=== PATIENT | male | born 1945 | race Caucasian/White ===

== ENCOUNTER 2021-03-28 21:57 | Inpatient (IN) | payer OTHER ==
[~2021-03-28] VITALS: Ht 165.1 cm; Wt 77.1 kg
[2021-03-28] MEDS ORDERED: IV NORMAL SALINE 500 ML BAG IV ONE (22:30)
[2021-03-28 23:16] LABS: MEAN CORPUSCULAR HEMOGLOBIN 29.9 uug (23.8-33.4); MEAN CORPUSCULAR VOLUME 88.7 fL (73.0-96.2); PLATELET COUNT (AUTO) 172 K/uL (152-348)
[2021-03-28 23:26] LABS: ALANINE AMINOTRANSFERASE 28 U/L (16-63); ALKALINE PHOSPHATASE 56 U/L (50-136); ASPARTATE AMINOTRANSFERASE 26 U/L (15-37); BILIRUBIN,TOTAL 0.2 mg/dL (0.2-1.0); CARBON DIOXIDE 24 mmol/L (21-32); CHLORIDE 106 mmol/L (98-107); CREATINE KINASE, TOTAL 42 U/L (39-308); GLUCOSE 110 mg/dL (74-106); LIPASE 224 U/L (73-393); POTASSIUM 3.7 mmol/L (3.5-5.1); TOTAL PROTEIN, SERUM 4.2 g/dL (6.4-8.2); UREA NITROGEN, BLOOD 59 mg/dL (7-18)
[2021-03-29] MEDS ORDERED: IV NORMAL SALINE 250 ML IV ONE (00:10)
[2021-03-29] MEDS ORDERED: IOHEXOL 300MG/ML 100 ML INFUS..BTL ONE (00:10)
[2021-03-29] MEDS ORDERED: SWABABLE VALVE TRANSFER SET EA MC ONE (00:10)
[2021-03-29 00:24] LABS: HEMATOCRIT 10.5 % (36.7-47.1)
[2021-03-29] MEDS ORDERED: OCTREOTIDE ACETATE 100 MCG/1 MLVIAL IJ ONE (01:45)
[2021-03-29] MEDS ORDERED: PANTOPRAZOLE SODIUM IV 80 MG in IV DEXTROSE 5% 100 ML IV ONE (01:45)
[2021-03-29] MEDS ORDERED: PANTOPRAZOLE SODIUM 40 MG VIAL ONE ×2 (02:11→04:54)
[2021-03-29] MEDS ORDERED: OCTREOTIDE ACETATE 100 MCG/1 MLVIAL ONE (02:12)
[2021-03-29] MEDS ORDERED: ONDANSETRON 4 MG/2 ML VIAL IV ONE (02:30)
[2021-03-29] MEDS ORDERED: ONDANSETRON 4 MG/2 ML VIAL ONE (02:30)
[2021-03-29] MEDS ORDERED: MAGNESIUM HYDROXIDE 30 ML LIQUID UDC PO PRN (02:45)
[2021-03-29] MEDS ORDERED: ACETAMINOPHEN 325 MG TABLET PO PRN (02:45)
[2021-03-29] MEDS ORDERED: REMEDY ESSENTIAL ZINC PASTE 113 GM TP PRN (02:45)
[2021-03-29] MEDS ORDERED: IV NS 1000 ML 1,000 ML IV PRN ×2 (02:45→03:49)
[2021-03-29] MEDS ORDERED: CEFTRIAXONE 1 G in IV DEXTROSE 5% 50 ML IV ONE (02:45)
[2021-03-29] MEDS ORDERED: ONDANSETRON 4 MG/2 ML VIAL IV PRN (02:45)
[2021-03-29] MEDS ORDERED: CEFTRIAXONE /D5W 50ML IVPB **ER PYXIS IV ONE (03:01)
[2021-03-29] MEDS ORDERED: CEFTRIAXONE 1 G in IV DEXTROSE 5% 50 ML IV SCH (04:00)
[2021-03-29] MEDS ORDERED: OCTREOTIDE ACETATE DRIP 500 MCG in IV NORMAL SALINE 99 ML IV PRN ×2 (04:00→07:00)
[2021-03-29] MEDS ORDERED: PANTOPRAZOLE SODIUM IV 80 MG in IV DEXTROSE 5% 500 ML IV ONE (04:30)
[2021-03-29] MEDS ORDERED: NOREPINEPHRINE BITARTRATE 8 MG in IV NORMAL SALINE 242 ML IV PRN ×2 (04:30→13:00)
[2021-03-29] MEDS ORDERED: NOREPINEPHRINE BITARTRATE 4 MG/4 ML VIAL IV ONE (04:54)
[2021-03-29] MEDS: PANTOPRAZOLE SODIUM IV 80 MG in IV DEXTROSE 5% 500 ML IV SCH ×2 (08:00→14:00)
[2021-03-29] MEDS ORDERED: PANTOPRAZOLE SODIUM 40 MG VIAL IV SCH ×2 (09:00→21:00)
[2021-03-29] MEDS ORDERED: PHENYLEPHRINE IV 50 MG in IV NORMAL SALINE 245 ML IV PRN (13:00)
[2021-03-29] MEDS ORDERED: PHENYLEPHRINE IV 100 MG in IV NORMAL SALINE 240 ML IV PRN (13:15)
[2021-03-29] MEDS ORDERED: KETAMINE HCL 500 MG/10 ML INJ ONE (13:26)
[2021-03-29] MEDS ORDERED: ETOMIDATE 20 MG/10 ML VIAL ONE (14:00)
[2021-03-29] MEDS ORDERED: SUCCINYLCHOLINE CHLORIDE 200 MG/10 ML VIAL ONE (14:00)
[2021-03-29 14:44] LABS: MEAN CORPUSCULAR HEMOGLOBIN 28.7 uug (23.8-33.4); MEAN CORPUSCULAR VOLUME 100.2 fL (73.0-96.2); PLATELET COUNT (AUTO) 185 K/uL (152-348)
[2021-03-29 14:58] LABS: ALANINE AMINOTRANSFERASE 27 U/L (16-63); ALKALINE PHOSPHATASE 62 U/L (50-136); ASPARTATE AMINOTRANSFERASE 30 U/L (15-37); BILIRUBIN,TOTAL 0.3 mg/dL (0.2-1.0); CHLORIDE 109 mmol/L (98-107); CREATININE 1.8 mg/dL (0.6-1.3); GLUCOSE 264 mg/dL (74-106); POTASSIUM 4.8 mmol/L (3.5-5.1); TOTAL PROTEIN, SERUM 3.8 g/dL (6.4-8.2); UREA NITROGEN, BLOOD 60 mg/dL (7-18)
[2021-03-29 15:06] LABS: CARBON DIOXIDE 9 mmol/L (21-32)
[2021-03-29 15:08] LABS: HEMATOCRIT 11.7 % (36.7-47.1)
[2021-03-29] MEDS ORDERED: DOPamine IV DRIP 800 MG/250ML 250 ML IV PRN (15:15)
[2021-03-29] MEDS ORDERED: VASOPRESSIN 20 UNIT/ML VIAL ONE (15:18)
[2021-03-29] MEDS ORDERED: DOPamine IV DRIP 400 MG/250ML 250 ML ONE (15:18)
[2021-03-29] MEDS ORDERED: EPINEPHRINE 1 MG/1 ML AMP ONE ×2 (15:46)
[2021-03-29] MEDS ORDERED: SODIUM BICARBONATE 8.4% 50 MEQ/50 ML DISP.SYRIN IV ONE ×2 (15:46)
[2021-03-29] MEDS ORDERED: VASOPRESSIN 40 UNIT in IV NORMAL SALINE 40 ML IV PRN (16:00)
[2021-03-29 16:02] LABS: LYMPHOCYTES % (MANUAL) 5 % (20-40); MONOCYTES % (MANUAL) 3 % (2-10); NEUTROPHILS % (MANUAL) 92 % (42-75)
[2021-03-29] MEDS ORDERED: SUCCINYLCHOLINE CHLORIDE 200 MG/10 ML VIAL IV ONE (17:15)
[2021-03-29] MEDS ORDERED: KETAMINE HCL 500 MG/10 ML INJ IV ONE (17:15)
[2021-03-29] MEDS ORDERED: ETOMIDATE 20 MG/10 ML VIAL IV ONE (17:15)
[2021-03-29] MEDS ORDERED: NOREPINEPHRINE BITARTRATE 32 MG in IV NORMAL SALINE 218 ML IV PRN (18:00)
[2021-03-29 18:27] VITALS: BP 75/47
[2021-03-30] MEDS ORDERED: CEFTRIAXONE 1 G in IV DEXTROSE 5% 50 ML IV SCH (03:00)
== END 2021-03-29 18:20 | DRG 208 ==
LOC: ER 21:59 → TRANSITION 03-29 09:07
PROVIDERS: ADMIT Student in an Organized Health Care Education/Training Program; ATTEND Nurse Practitioner Acute Care
PROC: 5A1935Z Respiratory Ventilation, Less than 24 Consecutive Hours (ICD-10-PCS; principal; 2021-03-29)
PROC: 0BH17EZ Insertion of Endotracheal Airway into Trachea, Via Natural or Artificial Opening (ICD-10-PCS; 2021-03-29)
PROC: 30233K1 Transfusion of Nonautologous Frozen Plasma into Peripheral Vein, Percutaneous Approach (ICD-10-PCS; 2021-03-29)
PROC: 30233N1 Transfusion of Nonautologous Red Blood Cells into Peripheral Vein, Percutaneous Approach (ICD-10-PCS; 2021-03-29)
PROC: 5A12012 Performance of Cardiac Output, Single, Manual (ICD-10-PCS; 2021-03-29)
PROC: 02HV33Z Insertion of Infusion Device into Superior Vena Cava, Percutaneous Approach (ICD-10-PCS; 2021-03-29)
DX: I26.99 Other pulmonary embolism without acute cor pulmonale (principal); J96.00 Acute respiratory failure, unspecified whether with hypoxia or hypercapnia; E43 Unspecified severe protein-calorie malnutrition; G93.40 Encephalopathy, unspecified; K92.2 Gastrointestinal hemorrhage, unspecified; D64.9 Anemia, unspecified; K22.9 Disease of esophagus, unspecified; I10 Essential (primary) hypertension; E86.1 Hypovolemia; E86.0 Dehydration; Z86.718 Personal history of other venous thrombosis and embolism; R57.8 Other shock; Z91.81 History of falling; R29.6 Repeated falls; K22.0 Achalasia of cardia; R79.89 Other specified abnormal findings of blood chemistry
CPT/HCPCS: 36415; 70030-TC; 70450; 71045; 71260; 72125; 72131; 83690; 85025; 85610; 86850; 86900; 86901; 86920; 87040; 87806; 93005; 93307; C9113; G0378; J0171; J0330; J0696; J1265; J2354; J2370; J2405; J3490; J7030; J7040; J7050; J7060; P9016; P9059; Q9967